=== PATIENT | male | born 1975 | race Caucasian/White ===

== ENCOUNTER 2017-09-11 11:28 | Emergency (ER) | payer OTHER ==
[2017-09-11 11:33] VITALS: O2SAT 98
[2017-09-11] MEDS ORDERED: chlordiazePOXIDE 25 MG CAP PO ONE (11:57)
--- NOTE | 2017-09-11 11:57 | EDPHY ---
H & P Stated Complaint: etoh/withdrawal "wants to quit" last drink 10 am Time Seen by Provider: 09/11/17 11:57 HPI/ROS: HPI: This is a 41-year-old male presents with Chief Complaint: etoh/withdrawal "wants to quit" last drink 10 am Location:body Quality: Alcoholism Duration: 6 month Signs and Symptoms: Denies suicidal ideation, denies homicidal ideation, denies hallucinations, and denies nausea, denies vomiting, denies abdominal pain , denies hemoptysis, denies hematemesis, + anxiety, + hand tremors, + nausea, + mild sweating Timing: Acute on chronic Severity: Moderate Context: Patient reports that in the last 6 months he continually consumes a 5th of vodka daily, last drink of 1 beer at 10:00 a.m. he is requesting to be placed into detox and alcohol treatment as he reports he knows he has a problem. He drinks because he is "bored." He denies any depression, anxiety, suicidal ideation, homicidal ideation. He has never had any alcohol withdrawal seizures. He reports that he can go 2-3 days without having a drink but is an able to remain sober longer than that time. He has a friend that is close to him that brought him to the emergency room today. He denies any medical history or requirement of any regular medications. He reports that he feels anxious and has hand tremors at the moment. He does admit to smoking marijuana recreational but denies any other recreational drug use. Patient denies any auditory/visual or tactile disturbances, nausea/vomiting, Modifying Factors: None Comment: ROS: see HPI Constitutional: No fever, no chills, no weight loss Eyes: No blurred vision Respiratory: No shortness of breath, no cough Cardiovascular: No chest pain Gastrointestinal: No nausea, no vomiting, no diarrhea Genitourinary: No dysuria Extremities: No myalgias Neurologic: No weakness, no numbness Skin: No rashes Hematologic: No bruising, no bleeding MEDICAL/SURGICAL/SOCIAL HISTORY: Medical history: Generally healthy. Does not take any regular medications. Surgical history: Denies Social history: Employed CONSTITUTIONAL: Pleasant, polite, cooperative adult white male, awake and alert , no obvious distress HEENT: Atraumatic and normocephalic, PERRL, EOMI. Tympanic membranes clear. Oropharynx clear, no exudate and moist pink mucosa. Airway patent. No lymphadenopathy. No meningismus. Cardiovascular: Normal S1/S2, tachycardia, regular rhythm, without murmur rub or gallop. PULMONARY/CHEST: Symmetrical and nontender. Clear to auscultation bilaterally. Good air movement. No accessory muscle usage. ABDOMEN: Soft, nondistended, nontender, no rebound, no guarding, no peritoneal signs, no masses or organomegaly. No CVAT. EXTREMITIES: 2/2 pulses, strength 5/5, no deformities, no clubbing, no cyanosis or edema. NEUROLOGICAL: no focal neuro deficits. GCS 15. Mild hand tremors noted. SKIN: Warm and dry, no diaphoresis, sweaty palms noted, no erythema. no rash. Good capillary refill. Source: Patient Exam Limitations: No limitations - Personal History Current Tetanus/Diphtheria Vaccine: Yes - Medical/Surgical History Hx Asthma: No Hx Chronic Respiratory Disease: No Hx Diabetes: No Hx Cardiac Disease: No Hx Renal Disease: No Hx Cirrhosis: No Hx Alcoholism: Yes Hx HIV/AIDS: No Hx Splenectomy or Spleen Trauma: No Other PMH: etoh - Social History Smoking Status: Current every day smoker Constitutional: Initial Vital Signs Temperature (C) 36.7 C 09/11/17 11:31 Heart Rate 135 H 09/11/17 11:31 Respiratory Rate 20 09/11/17 11:31 Blood Pressure 178/129 H 09/11/17 11:31 O2 Sat (%) 98 09/11/17 11:31 O2 Delivery Mode Room Air Allergies/Adverse Reactions: No Known Allergies Allergy (Unverified 09/11/17 11:31) Home Medications: Medication Instructions Recorded NK [No Known Home Meds] 09/11/17 Medical Decision Making ED Course/Re-evaluation: CIWA score=6 No signs of alcohol withdrawal/psychosis/delirium Patient given p. o. Ativan and p.o. Librium Ambulatory without any deficits No signs of suicidal ideation/homicidal ideation/psychosis security sales manager consult for local resources. Patient will be [facility] with Librium prepack for further care This patient was seen under the supervision of my secondary supervising physician. I evaluated care for this patient independently. Discussed this patient with Dr. Bowie who did not see the patient. Differential Diagnosis: Differential diagnosis includes but is not limited to major depression, alcoholism, alcohol withdrawal. - Data Points Medications Given: Discontinued Medications Chlordiazepoxide HCl (Librium) 50 mg PO EDNOW ONE Stop: 09/11/17 11:58 Last Admin: 09/11/17 12:31 Dose: 50 mg Lorazepam (Ativan) 1 mg PO EDNOW ONE Stop: 09/11/17 12:09 Last Admin: 09/11/17 12:30 Dose: 1 mg Departure - Departure Disposition: Other Psych, Not [place] Clinical Impression: Alcohol abuse Alcohol dependence Qualifiers: Substance use status: uncomplicated Qualified Code(s): F10.20 - Alcohol dependence, uncomplicated Condition: Fair Instructions: Chlordiazepoxide (By mouth), Alcohol Withdrawal (ED), Alcohol Dependence (ED) Referrals: [facility] [Outside] - As per Instructions
[2017-09-11] MEDS ORDERED: LORazepam 1 MG TAB PO ONE (12:08)
[2017-09-11] MEDS ORDERED: CHLORDIAZEPOXIDE 25MG PREPK#6 BTL TAKEHOME ONE (12:23)
[2017-09-11 13:08] VITALS: BP 156/112; PULSE 90; RESP 16; TEMP 98.6
--- NOTE | 2017-09-11 14:34 | ASMTCMCOM ---
CM Note CM Note Notes: Met with patient to discuss options for detox and rehab. Patient admits to long history of drinking and recent (past 6 months) of escalation in amount and is curently experiencing withdrawal symptoms. We are treating him here for presenting symptoms and he would like further resources for continued detox and potential rehabilitation. I discussed different options with patient including private pay vs insurance. I was able to confirm an intake assessmant at [facility] in [place]. Patient aware that other immediate option for detox is the [facility]. Patient offered and given other resources to pursue as well. Patient tells this CM that he will have his "friend" and power truck driver take him to [facility] for intake assessment. Date Signed: 09/11/2017 02:34 PM Electronically Signed By:Lisandra Sky RN
== END 2017-09-11 13:20 ==
DX: F10.20 Alcohol dependence, uncomplicated (principal); F17.200 Nicotine dependence, unspecified, uncomplicated